=== PATIENT | female | born 1945 ===

== ENCOUNTER 2016-11-06 07:38 | Day surgery (SDC) | payer MEDICAID ==
[2016-11-02 09:39] VITALS: BMI 34.3
[2016-11-06 08:32] VITALS: RESP 18
[2016-11-06] MEDS ORDERED: Lidocaine 1% Inj (20ml) ONE (10:10)
[2016-11-06] MEDS ORDERED: Bacitracin 500 Units/gm Oint Foilpak UD ONE (10:10)
[2016-11-06] MEDS ORDERED: Bupivacaine HCl 0.5% PF (10 ml) Inj ONE ×2 (10:10→11:44)
[2016-11-06] MEDS ORDERED: ceFAZolin IV 1 gm in Dextrose 1 GM/50 ML BAG IVPB ONE (10:10)
[2016-11-06] MEDS ORDERED: Propofol 10 mg/ml Inj (20 ML) ONE (10:13)
[2016-11-06] MEDS ORDERED: Midazolam 2 MG/2 ML VIAL ONE (10:13)
[2016-11-06] MEDS ORDERED: Lidocaine Hydrochloride 5 ML INJ ONE (10:13)
[2016-11-06] MEDS ORDERED: Dexamethasone 4 mg/1 ml ONE (11:44)
[2016-11-06] MEDS ORDERED: Oxycodone/Acetaminophen 5/325 mg Tab PO PRN ×2 (12:04)
[2016-11-06 13:05] VITALS: BP 145/72; PULSE 81; O2SAT 100
--- NOTE | 2016-11-06 13:06 | RAD ---
PROCEDURE: Right Foot Radiographs. HISTORY: s/p Right foot bunionectomy COMPARISON: None. FINDINGS: BONES: No acute fracture. Status post osteotomy 1st metatarsal head. Osteotomy 1st proximal phalanx with 2 fixation screws. 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 JOINTS: As above. SOFT TISSUES: Normal. OTHER FINDINGS: None. IMPRESSION: Status post osteotomy 1st metatarsal head and proximal phalanx.
[2016-11-06 15:01] VITALS: TEMP 97.1
--- NOTE | 2016-11-06 20:05 | PCM.SURG1 ---
Surgeon's Initial Post Op Note - Surgeon's Notes Surgeon: Dr. Sanchez Mechanical Engineering Officer: Javon Veronica DPM PGY-2 Type of Anesthesia: IV Sedation, Local Anesthesia Administered By: Dr. Benson Pre-Operative Diagnosis: Right foot- painful hallux abductovalgus deformity Operative Findings: See dictation. Hemostasisi: PAT at 250mmHg. Materials: Synthes 2.0x16mm screw, 2.0x14mm screw; 2-0, 3-0, 4-0 vicryl; 4-0 nylon; bacitracin, adaptic, 4x4 gauze, aarti, kerlix, HEATHER bandage. Injectables: 20cc 1 :1 1% Lidocaine plain: 0.5% Marcaine plain pre-op; 10cc 0.5% Marcaine plain and 1cc of dexamethasone phosphate post-op. Condition: Stable Post-Operative Diagnosis: Same as above Operation Performed: Right foot: [place] bunionectomy; Vel osteotomy of the proximal phalanx of the hallux with screw fixation Specimen/Specimens Removed: Bone (Right foot) Estimated Blood Loss: EBL {In ML}: 1 Blood Products Given: N/A Drains Used: No Drains Post-Op Condition: Good Date of Surgery/Procedure: 11/06/16 Time of Surgery/Procedure: 11:30
--- NOTE | 2016-11-11 08:40 | OP ---
PROCEDURE DATE: 11/06/2016 SURGEON: Dino Sanchez DPM. PBX WIRE CHIEF: Javon Veronica DPM, PGY-2. DIRECTOR OF FAMILY SERVICE CENTER: Dr. Benson. ANESTHESIA: IV sedation with local. PREOPERATIVE DIAGNOSES: 1. Right foot painful hallux abductovalgus deformity. 2. Right foot painful hallux interphalangeus deformity. POSTOPERATIVE DIAGNOSIS: 1. Right foot painful hallux abductovalgus deformity. 2. Right foot painful hallux interphalangeus deformity. NAME OF PROCEDURE: 1. Right foot modified [place] bunionectomy. 2. Right foot Vel osteotomy of the proximal phalanx of the hallux with screw fixation. INDICATIONS: The patient is a 71-year-old female with the above diagnoses. The patient has exhauste d conservative treatment at this time and now requests surgical intervention. The patient signed the consent after careful explanation of risks, benefits, complications, and alternatives for surgical p rocedure. No guarantees were given nor implied. One gram of IV Ancef was given to the patient prior to the procedure. The patient's n.p.o. status was confirmed prior to taking the patient to the OR. PREPARATION: The patient was brought to the operating room and placed on the operating room table in supine position. Time-out was performed for identification of the correct patient and the correct p rocedure. A well-padded pneumatic ankle tourniquet was applied to the patient's right ankle in a sup ramalleolar position. After induction of IV sedation, the patient received a total of 20 mL of a 1:1 mixture of 2% lidocaine plain and 0.5% Marcaine plain in local block fashion to the right foot. Onc e local anesthesia was achieved, the right foot was then prepped and draped in usual sterile manner. Esmarch was utilized to exsanguinate the patient's right foot. Pneumatic ankle tourniquet was then inflated to 250 mmHg, and the procedure began. PROCEDURE #1: Right foot modified [place] bunionectomy. Attention was then directed to the dorsomedial aspect of the first metatarsophalangeal joint where an approximately 8 cm linear longitudinal incision was made medial and parallel to the extensor halluci s longus tendon. The incision was made along the first metatarsophalangeal joint and was extended fu rther distally to the level of the hallux interphalangeal joint. The incision involved the contour o f the deformity. The incision was deepened through the subcutaneous tissues using sharp and blunt di ssection. Care was taken to identify and retract all vital neurovascular structures. All bleeders w ere cauterized and ligated as necessary. At this time, an inverted L-type capsulotomy was performed over the dorsal aspect of the first metata rsophalangeal joint. The periosteal and capsular structures were then carefully dissected free of th eir osseous attachments and reflected medially and laterally to expose the head of the first metatars al into the operative field. Next, using a sagittal bone saw, the medial eminence was resected and p assed from the operative field. Correction of the deformity was assessed at this time, and it was no sharyn to be excellent. However, the hallux still appeared to be shifting laterally to abut against the second digit. The incision was now made to perform an Vel osteotomy. PROCEDURE #2: Right foot Vel osteotomy of the proximal phalanx of the hallux with screw fixation. Via the original incision, the periosteal and capsular structures were then reflected medially and la terally to expose the base of the proximal phalanx to the operative field. Next, using an oscillatin g bone saw, a through and through oblique osteotomy was created in the proximal phalanx of the hallux from medial to lateral. A small wedge of bone was resected and passed from the operative field in o rder to bring the hallux medially. Following standard AO principles and techniques, 2 Synthes screws measuring 2.0 mm x 16 mm, and 2.0 mm x 14 mm were inserted across the osteotomy site with excellent compression noted. The position and orientation of the screws was checked under intraoperative fluor oscopy, and both were noted to be excellent. Correction of the deformity was assessed at this time, and it was noted to be excellent. The surgical wound was then flushed with a copious amount of sterile normal saline. The periosteal a nd capsular structures were then reapproximated and coapted using 2-0 and 3-0 Vicryl. The subcutaneo us tissues were then reapproximated and coapted using 4-0 Vicryl, and the skin was reapproximated and coapted using 4-0 nylon in a combination of horizontal mattress and simple suture technique. The oden rgical site was then infiltrated with 10 mL of 0.5% Marcaine plain and 1 mL of dexamethasone phosphat e. The surgical site was then dressed with topical bacitracin, Adaptic, 4 x 4 gauze, Kerlix, and an Roque bandage. The attending, Dr. Sanchez, was present throughout the entire case. POSTOPERATIVE CONDITION: The patient tolerated the anesthesia and procedures well and with no compli cations. The patient was escorted to the recovery room with vital signs stable and neurovascular sta tus intact to the right foot. This patient is to follow up with Dr. Sanchez in his office on an out patient basis. Javon Veronica DPM Dino Sanchez DPM cc: [id number] TT: 11/11/2016 08:38:42 jn
== END 2016-11-06 13:30 | disposition home or self-care (01) ==
LOC: C.SDS 07:38
PROVIDERS: ATTEND Podiatrist Foot & Ankle Surgery
DX: M20.11 Hallux valgus (acquired), right foot (principal); M21.611 Bunion of right foot
CPT/HCPCS: 28298; 73630; 88304; 97116; 97162; C1713; G8978; G8979; G8980; J2250; J2704; J3010

== ENCOUNTER 2016-12-18 08:23 | Day surgery (SDC) | payer MEDICAID ==
[2016-11-02 09:39] VITALS: BMI 34.3
[2016-12-18] MEDS ORDERED: Dexamethasone 4 mg/1 ml ONE (12:19)
[2016-12-18] MEDS ORDERED: ceFAZolin IV 1 gm in Dextrose 1 GM/50 ML BAG IVPB ONE (12:19)
[2016-12-18] MEDS ORDERED: Lidocaine 2% Inj (20ml) ONE (12:20)
[2016-12-18] MEDS ORDERED: Bacitracin 500 Units/gm Oint Foilpak UD ONE (12:21)
[2016-12-18] MEDS ORDERED: Lactated Ringer's 1,000 ML IV ONE (12:55)
[2016-12-18] MEDS ORDERED: Midazolam 2 MG/2 ML VIAL ONE (13:02)
[2016-12-18] MEDS ORDERED: Propofol 10 mg/ml Inj (20 ML) ONE (13:02)
[2016-12-18] MEDS: Bupivacaine HCl 0.5% PF (10 ml) Inj ONE ×2 (13:15→13:50)
[2016-12-18] MEDS ORDERED: Oxycodone/Acetaminophen 5/325 mg Tab PO PRN ×2 (14:18)
[2016-12-18] MEDS ORDERED: HYDROmorphone 0.5 mg/0.5 ml ISec IVP PRN (14:26)
--- NOTE | 2016-12-18 14:27 | PCM.SURG1 ---
Surgeon's Initial Post Op Note - Surgeon's Notes Surgeon: Dr. Dino Sanchez Photographer News: Dr. Hoover PGY-2, Dr. Nallely Hardin PGY-1 Type of Anesthesia: IV Sedation, Local Pre-Operative Diagnosis: left bunion Operative Findings: see dictation. M: synthes 2.0 FT cortical screw. I: 20 1: 1 1%lidocaine plain and .5% marcaine plain, 10mL of .5% marcaine plain and 1ml decadron Post-Operative Diagnosis: same Operation Performed: left 1st metatarsal osteotomy with internal fixation Specimen/Specimens Removed: bone of left foot Estimated Blood Loss: EBL {In ML}: 5 Blood Products Given: N/A Drains Used: No Drains Post-Op Condition: Good Date of Surgery/Procedure: 12/18/16 Time of Surgery/Procedure: 14:28
[2016-12-18] MEDS ORDERED: Lactated Ringer's 1,000 ML IV SCH (14:30)
--- NOTE | 2016-12-18 15:41 | RAD ---
PROCEDURE: Left Foot Radiographs. HISTORY: s/p left foot surgery COMPARISON: None available FINDINGS: BONES: Status post bunionectomy and osteotomy distal 1st metatarsal. Surgical screw in distal 1st metatarsal diaphysis. No acute fracture. JOINTS: Normal. SOFT TISSUES: Normal. OTHER FINDINGS: None. IMPRESSION: Bunionectomy and osteotomy of distal 1st metatarsal.
[2016-12-18 15:43] VITALS: RESP 18
[2016-12-18 16:45] VITALS: BP 131/76; PULSE 76; TEMP 97.8; O2SAT 97
--- NOTE | 2016-12-23 16:27 | PCM.OP ---
Operative Report - Operative Report Date of Surgery/Procedure: 12/18/16 Time of Surgery/Procedure: 13:00 Surgeon: Dr. Sanchez Airplane Woodworker: Dr. Wilfred Stokes Anesthesia/Sedation: IV sedation, local injection Pre-Operative Diagnosis: Left foot hallux abducto valgus deformity Post-Operative Diagnosis: same as above Indication for Surgery: This patiet is a 71 y/o female with the aformentioned diagnosis. She is being treated by Dr. Sanchez in his office on an out patient basis where she has exhausted all conservative treatment options. All conservative and surgical treatment options as well as all alternatives, benefits, complications and risks to surgical procedure were explained to the patient and his family at length to their understanding. The patient desires surgical intervention at this time. All questions were addressed and answered. No guarantees were given nor implied. The consent was signed and the NPO status was confirmed before bringing the patient into the operating room. Operative Findings: The patient was brought into the operating room and placed on the operating room table in the supine position. A pneumatic ankle tourniquet was applied to the left ankle around the supramalleolar area. After induction of IV sedation a local injection consisting of 20ml of a 1:1 mixture of 1% lidocaine plain and 0.5% marcaine plain were adminsitered to the left foot in a local block fashion. After local anesthesia was achieved, the foot was prepped and draped in the usual sterile manner and the procedure began. Procedure/Operation Description: Procedure: Left foot first metatarsal osteotomy with internal fixation. Attention was directed to the dorsal medial aspect of the left foot 1st MTPJ where a linear longitudinal incision was made utilizing a 15-blade. The incision was deepened through the superficial and subuctaneous tissues using sharp and blunt dissection. Care was taken to retract all vital nuerovascular and tendinous structures throughout the duration of the procedure. Dissection was then carried to the lateral aspect of the 1st MTPJ into the 1st interspace with dissecting scissors. A lateral release was performed by transecting the lateral metatarsal sesamoidal ligament , the adductor hallucis tendon at its insertion into the fibular sesamoid and the lateral 1st MTPJ capsule. Next, attention was directed back to the dorsal medial 1st MTPJ where an inverted L-type capsulotomy was performed. A 15-blade and freer elevator were then utilized to free the periosteal and capsular structures from the head of the first metatarsal. It was noted at this time that there was a prominent hypertrophic portion of bone at the dorsal medial 1st met head. With the head of the 1st metatarsal now adequately exposed, a sagittal saw was used to resect the prominent medial eminence. Attention was directed to the medial 1st met head where a Chevron type osteotomy was performed with the sagittal saw. The osteotomy was performed so that the apex pointed distally, and dorsal arm was slightly longer than plantar arm to accomodate for internal fixation. Once the osteotomy was completed, the capital fragment was shifted laterally into a corrected positon and impacted on the shaft of the 1st metatarsal. Next, a temporary K-wire was utilized to hold the osteotomy in place. Then, one 2.0mm Synthes fully threaded cortical screw was inserted across the osteotomy site using standard AO technique. The temporary K-wire was then removed and it was noted that there was excellent compression and fixation across the osteotomy site. The sagittal saw was then utilized to removed the prominent medial shelf of bone and any other remaining prominent portions of bone from the 1st met head. The surgical area was then flused with copious amounts of sterile normal saline. Attention was then directed to the medial aspect of the 1st MTPJ where a medial capsulorrhaphy was performed. The capsular and periosteal structures were then reapproximated with 2-0 and 3-0 vicryl suture. The subcutaneous tissues were reapproximated with 4-0 vicryl suture. The skin was reapproximated with 4-0 prolene suture. Intraoperative injection consisted of 10ml 0.5% marcaine plain, 1ml dexamethasone. Post-op bandages consisted of xeroform, DSD, kerlix, HEATHER Estimated Blood Loss: 2 Complications: None Discharge & Condition: Patient was escorted from the OR to the recovery room with vital signs stable and neurovascular status intact. Patient tolerated the procedure and anesthesia well with no complications. Patient will follow up with Dr. Sanchez in his office on an outpt basis.
== END 2016-12-18 16:37 | disposition home or self-care (01) ==
LOC: C.SDS 08:23
PROVIDERS: ATTEND Podiatrist Foot & Ankle Surgery
DX: M20.12 Hallux valgus (acquired), left foot (principal)
CPT/HCPCS: 28304; 73630; 88304; 88311; J0690; J2250; J2704; J3010; J7120